=== PATIENT | male | born 2000 | race Caucasian/White ===

== ENCOUNTER 2019-01-27 13:13 | Emergency (ER) | payer SELFPAY ==
--- NOTE | 2019-01-27 13:16 | NUR ---
CALLED FOR PT. PT NOT IN THE WAITING ROOM NOR OUTSIDE THE WAITING ROOM
== END 2019-01-27 13:21 | disposition left against medical advice (07) ==
LOC: ER 13:13
DX: Z53.21 Procedure and treatment not carried out due to patient leaving prior to being seen by health care provider (principal)